=== PATIENT | male | born 1965 ===

== ENCOUNTER → 2023-05-01 | Day surgery (SDC) | payer OTHER | END | disposition home or self-care (01) | LOC: ADM 04-29 14:15 → AMB-ENDOS 06:55 | PROVIDERS: ATTEND Colon & Rectal Surgery | DX: D12.2 Benign neoplasm of ascending colon (principal); R19.4 Change in bowel habit; Z20.822 Contact with and (suspected) exposure to COVID-19; Z88.6 Allergy status to analgesic agent; K64.8 Other hemorrhoids ==

== ENCOUNTER 2023-09-25 09:00 | Day surgery (SDC) | payer OTHER ==
[2023-09-25] MEDS ORDERED: ONDANSETRON HCL 2 MG/ML VIAL IV ONE (14:00)
[2023-09-25] MEDS ORDERED: MIDAZOLAM HCL 2 MG/2 ML VIAL IV ONE (14:00)
[2023-09-25] MEDS ORDERED: fentaNYL CITRATE 50 MCG/ML AMPUL IV PUSH ONE (14:00)
[2023-09-25] MEDS ORDERED: DIPHENHYDRAMINE HCL 50 MG/ML VIAL 1ML IV ONE (14:00)
== END 2023-09-25 15:30 | disposition home or self-care (01) ==
LOC: AMB-ENDOS 09:00
PROVIDERS: ATTEND Colon & Rectal Surgery
DX: K63.5 Polyp of colon (principal); Z88.6 Allergy status to analgesic agent; K64.8 Other hemorrhoids